=== PATIENT | male | born 1985 | race Caucasian/White ===

== ENCOUNTER 2018-08-11 05:55 | Inpatient (IN) ==
[2018-08-11] MEDS ORDERED: ONDANSETRON 4 MG/2 ML VIAL IVP ONE (06:12)
[2018-08-11] MEDS ORDERED: Sodium Chloride 0.9% 1,000 ML PRIMARY IV ONE (06:12)
[2018-08-11] MEDS ORDERED: PANTOPRAZOLE IV 40 MG VIAL IVP ONE (06:12)
[2018-08-11 06:35] LABS: BASOPHILS # (AUTO) 0.03 10*3/UL; BASOPHILS % (AUTO) 0.5 % (0-1); EOSINOPHILS # (AUTO) 0.04 10*3/UL; EOSINOPHILS % (AUTO) 0.7 % (0-8); Hemoglobin [HGB] 15.3 g/dL (14.0-18.0); LYMPHOCYTES # (AUTO) 1.66 10*3/uL; MEAN CORPUSCULAR HEMOGLOBIN 33.2 PG (27-31); MEAN CORPUSCULAR HGB CONC 34.8 g/dL (33-37); MEAN CORPUSCULAR VOLUME 95.4 FL (80-90); MEAN PLATELET VOLUME 11.1 FL (7.4-12.2); MONOCYTES # (AUTO) 0.64 10*3/UL (0.3-0.8); MONOCYTES % (AUTO) 10.4 % (5-15); NEUTROPHILS # (AUTO) 3.75 10*3/UL; NEUTROPHILS % (AUTO) 61.1 % (50-80); PLATELET MORPHOLOGY COMMENT NORMAL MORPHOLOGY (NORM); RBC MORPHOLOGY COMMENT NORMAL MORPHOLOGY (NORM); RED BLOOD COUNT 4.61 10^6/uL (4.70-6.10); WBC MORPHOLOGY COMMENT NORMAL MORPHOLOGY (NORM)
[2018-08-11 06:36] LABS: BILIRUBIN,URINE NEGATIVE (NEG); CLARITY,URINE CLEAR (CLEAR); COLOR,URINE YELLOW (Y); GLUCOSE, URINE (UA) NEGATIVE (NEG); OCCULT BLOOD,URINE NEGATIVE (NEG); PH,URINE 8.5 (5.0-8.5); PROTEIN,URINE 30 mg/dl (NEG)
[2018-08-11 06:39] LABS: RBC,URINE 0 /hpf; SQUAMOUS EPITHELIAL CELL,UR RARE; URINE SAMPLE TYPE CLEAN CATCH URINE; WBC,URINE 0
[2018-08-11 06:45] LABS: BLOOD UREA NITROGEN 16 mg/dL (7-22); BUN/CREATININE RATIO 22.85 (6-20); LIPASE 707 IU/L (23-300); SERUM ALBUMIN 4.8 g/dL (3.5-4.8)
[2018-08-11] MEDS ORDERED: HYDROmorphone 2 MG/1 ML IVP ONE (07:37)
--- NOTE | 2018-08-11 07:56 | DI ---
CT ABDOMEN SCAN WITH IV CONTRAST, 08/11/2018 6:13 AM : Clinical History: Abdominal pain. Previous Exam: None at this facility. IV Contrast: 65 mL of Ultravist 370. Oral Contrast: No oral contrast ordered. Rectal Contrast: No rectal contrast ordered. Lungs: No infiltrate or effusion. Liver: Mild hepatomegaly with severe fatty infiltration. The density of the liver is substantially lo wer than that of the gallbladder. Gallbladder: Grossly normal. No calcified gallstones visualized. Common duct is mildly dilated at 6 m m. Adrenal Glands: Normal. Spleen: Normal. Pancreas: There is inflammatory/infiltrative change surrounding the head of the pancreas and the duod enum consistent with focal pancreatitis. No pseudocyst or pancreatic calcifications identified. The p ancreatic duct is not dilated. Kidneys: Normal size, shape, position and contour. No hydronephrosis or hydroureter. No renal or uret eral calculi. Masses: None. Lymph Nodes: Normal. Ascites: No ascites. Free Air: None. Spine: Normal lower thoracic and lumbar spine. READIN. Focal pancreatitis involving the head of the pancreas with inflammatory change extending to the d uodenum. No pseudocyst or pancreatic calcification identified. The pancreatic duct is not dilated. 2. Mild hepatomegaly with severe fatty infiltration of the liver. The common bile duct is mildly dil ated at 6 mm. The gallbladder is grossly normal. CT PELVIS SCAN WITH IV CONTRAST, 08/11/2018 6:13 AM: Clinical History: See above. Previous Exam: None at this facility. Contrast: Same bolus used for CT scans of the abdomen. Masses: No masses or enhancing lesions. Ascites: None. Free Air: None. Lymph Nodes: No adenopathy. Appendix: Normal. Small Bowel: Normal small bowel, terminal ileum, and ileocecal valve. Colon: Normal. Bladder: Normal. Hernias: None. Bony Pelvis: Normal sacrum, pelvic bones, and hips. READING: Normal CT scan of the pelvis with IV contrast.
--- NOTE | 2018-08-11 08:07 | PDOC ---
Abdomen/Flank HPI - General Chief Complaint: Abdomen Pain Stated Complaint: abd pain Date Seen by Provider: 08/11/18 Time Seen by Provider: 06:05 Source: POSITIVE: Patient Exam Limitations: POSITIVE: No limitations Nurse's Notes Reviewed & Considered: Yes - History of Present Illness Initial Comments: The patient is a 32-year-old male. Patient presents to the emergency room with an approximately 21 hour history of pain over the epigastrium and right of the epigastrium. Patient states he's had similar intermittent episodes over the past 2 months, which have not been as intense as his present episode. He states he's had some vomiting. No fevers. He states he last tried to eat around 9 PM last night and this induced vomiting. No melena, hematochezia, hematemesis, dysuria or hematuria. No past history of abdominal surgery. Patient states he drinks 6-12 beers a night. He took some Advil last night for his pain. He is on no prescription medications on a regular basis. He gives his weight is around 300 pounds. Body Location Affected: REPORTS: Abdomen Timing: REPORTS: Abrupt, Constant, Getting Worse Duration: <24 hours (Approximately 21 hours) Severity: Moderate Quality: REPORTS: "Pain" Abdominal Pain Onset Location: REPORTS: RUQ, Epigastric Abdominal Pain Radiation: REPORTS: No radiation Context: REPORTS: None Modifying Factors: improves with: Vomiting Associated Symptoms: REPORTS: Nausea, Vomiting Similar Symptoms Previously: Yes Recent Care Received: REPORTS: Denies Any Prior Injuries Related to Current Complaint?: No - Patient Home Medications Home Medications: Home Medications Ibuprofen [Advil] 400 mg PO Q6H PRN 08/11/18 - Patient Allergies Allergies/Adverse Reactions: Allergies Allergy/AdvReac Type Severity Reaction Status Date / Time No Known Allergies Allergy Unverified 08/11/18 05:58 Past Medical History - heen HEENT History: Denies History Cardiovascular History: Denies History Respiratory History: Denies History Gastrointestinal History: Denies History Genitourinary History: Denies History Endocrine History: Denies History Musculoskeletal History: Denies History Neurological History: Denies History Blood Disorders: Denies History History of Sexually Transmitted Diseases: No Male Reproductive History: Denies History Cancer History: Denies History In Past Year Been Physically Harmed or Verbally Threatened: No History of MDRO: No Tobacco Use: Never Smoker In the Past 12 Months, Have Used or Abuse Any Substance: None Previous Surgical History: Yes Type / Date of Surgery: right knee Anesthesia Reactions: No Malignant Hyperthermia: No Family History of Malignant Hyperthermia: No Significant Family History: No pertinent family hx Past Medical History Reviewed: Reviewed - No Changes ROS Constitution: REPORTS: Denies Symptoms Cardiovascular: REPORTS: Denies Cardiac Symptoms Respiratory: REPORTS: Denies Resp Symptoms Neurological: REPORTS: Denies Neuro Symptoms Gastrointestinal: REPORTS: Abdominal Pain, Nausea, Vomitting Endocrine: REPORTS: Denies Symptoms Musculoskeletal: REPORTS: Denies MS Symptoms Genitourinary: REPORTS: Denies Symptoms Eyes: REPORTS: Denies Symptoms ENT: REPORTS: Denies Symptoms Skin: REPORTS: Denies Skin Symptoms Lympathic: REPORTS: Denies Lympathic Symptoms Immunologic: POSITIVE: Denies Symptoms Psychiatric: POSITIVE: Denies Psych Symptoms Abdominal/Flank Pain PE - General Appearance General Appearance: POSITIVE: Alert, Cooperative, No Acute Distress, No Evidence of Trauma - HEENT HEENT: POSITIVE: Head Inspection Nml, Eyes Inspection Nml, Ears Inspection Nml, Nose Inspection Nml, Oral/Dental Inspect. Nml, Pharynx Inspect. Nml, PERRL, EOMI - Neck Neck: POSITIVE: Normal Inspection, No Apparent Injury - Respiratory Respiratory: POSITIVE: No Respiratory Distress, Breath Sounds Normal, Chest Non- Tender - Cardiovascular Cardiovascular: POSITIVE: Regular Rate and Rhythm, Heart Sounds Normal, Equal Pulses, Strong Pulses Peripheral Pulses: Radial (R): 2+, Radial (L): 2+ - Chest Chest: POSITIVE: Non Tender - Abdomen Abdomen: Soft: (All Quadrants), Normal Bowel Sounds: (All Quadrants), Denies Tenderness: (LLQ), (RLQ), No Splenomegaly: (All Quadrants), No Hepatomegaly: (All Quadrants), No Guarding: (All Quadrants), No Rebound: (All Quadrants), No Palpable Pulse: (All Quadrants), No Palpabale Mass: (All Quadrants), No Distention: (All Quadrants), No Rigidity: (All Quadrants), Tenderness Noted: (RUQ), (LUQ) Additional Abdominal Details: Abdominal examination shows bowel sounds to be present. Patient has pain on direct palpation over the epigastrium and just right of the epigastrium and, less so left of the epigastrium. No masses, organomegaly or rebound. - Back Back: POSITIVE: Normal Inspection. NEGATIVE: CVA Tenderness (R), CVA Tenderness (L) - Skin Skin: POSITIVE: Intact, Normal For Race, Warm, Dry, No Rash - Extremities Extremity: Non-Tender: (All Extremities), Normal ROM: (All Extremities), Normal Inspection: (All Extremities) - Neurological Neurological: POSITIVE: Affect Apporpriate, Oriented X3, physical director Normal As Tested, Motor Normal, Sensation Normal - Psychological Psychiatric: POSITIVE: Affect Appropriate, Mood Appropriate Images - Complete Complete: 1 - Area described pain Abdomen Progress - Results Reviewed by me Xrays/CTs/US Reviewed by me: Yes Discussed with Radiologist: Yes Radiology Findings: CT scan abdomen and pelvis with IV contrast shows pancreatitis; no gallstones seen. Common duct mildly dilated. Lab Results Reviewed by Me: Yes CBC and BMP: 08/11/18 06:27 08/11/18 06:27 Lab Results:: Laboratory Results 08/11/18 08/11/18 08/11/18 06:27 06:27 06:27 WBC 6.13 RBC 4.61 L Hgb 15.3 Hct 44.0 MCV 95.4 H MCH 33.2 H MCHC 34.8 RDW Std Deviation 43.6 RDW Coeff of Arvind 12.9 Plt Count 203 MPV 11.1 Immature Gran % (Auto) 0.2 Neut % (Auto) 61.1 Lymph % (Auto) 27.1 [place] % (Auto) 10.4 Eos % (Auto) 0.7 Baso % (Auto) 0.5 Immature Gran # (Auto) 0.01 Neut # (Auto) 3.75 Lymph # (Auto) 1.66 [place] # (Auto) 0.64 Eos # (Auto) 0.04 Baso # (Auto) 0.03 WBC Morphology Comment Normal morphology Plt Morphology Comment Normal morphology RBC Morph Comment Normal morphology Sodium 138 Potassium 3.9 Chloride 101 Carbon Dioxide 26 Anion Gap 11 BUN 16 Creatinine 0.7 Estimated GFR > 60 BUN/Creatinine Ratio 22.85 H Glucose 98 Calculated Osmolality 286.0 Calcium 9.8 Total Bilirubin 1.1 AST 179 H ALT 233 H Alkaline Phosphatase 118 Total Protein 8.5 H Albumin 4.8 Globulin 3.7 Albumin/Globulin Ratio 1.20 L Amylase 154 H Lipase 707 H Ur Collection Type Clean catch urine Urine Color Yellow Urine Clarity Clear Urine pH 8.5 Ur Specific [place] 1.020 Urine Protein 30 A Urine Glucose (UA) Negative Urine Ketones Trace A Urine Occult Blood Negative Urine Nitrate Negative Urine Bilirubin Negative Urine Urobilinogen 1.0 Ur Leukocyte Esterase Negative Urine RBC 0 Urine WBC 0 Ur Squamous Epith Cells Rare Ur Renal Epithelial Cell None Urine Crystals None Urine Bacteria None Urine Casts None Urine Mucus None Urine Trichomonas None Urine Yeast None Ur Culture Indicated? Culture not set - Patient's Progress Pain Medication Addressed: POSITIVE: Yes (Patient given a liter of normal saline in the emergency room and was medicated with Dilaudid for pain and Zofran for nausea. Feeling some better after this medication) School/Work Release Addressed: POSITIVE: Not Applicable Re-examine Time: 08:00 Re-Examine Comment: Patient advised of the diagnosis of pancreatitis. Case discussed with hospitalist on-call, Dr. Peterson, who has admitted the patient for further evaluation and treatment. Status: POSITIVE: Unchanged, Re-Examined - Consult Consult (If Yes, Name of Consulting MD & Time Called): Yes (Dr. Peterson, hospitalist, 8 AM) Consulting MD will see pt:: [place] [facility] [place] Counseled: POSITIVE: Patient, RE: Lab Results, RE: Radiology Results, RE: DX, RE: Need for F/U Patient Care Time - Estimated PCT Patient Care Time (In Minutes): 50 Vital Signs - Recent Vital Signs Vital Signs: Vital Signs (Last 8 hours) Temp Pulse Resp BP Pulse Ox 08/11/18 06:00 97.1 F 74 19 160/95 94 - VS Reviewed Vital Signs Reviewed: Yes Discharge Clinical Impression: Pancreatitis Discharge Disposition: Admit to Inpatient Condition: Fair Patient Problem(s) Reviewed: Yes Follow Up With: NONE,NONE [Primary Care Provider] - Date Decision to Admit to Inpatient: 08/11/18 Time Decision to Admit to Inpatient: 08:00
[2018-08-11] MEDS ORDERED: ACETAMINOPHEN 325 MG TABLET PO PRN (11:31)
[2018-08-11] MEDS ORDERED: CALCIUM CARBONATE 500 MG (TUMS) CHEWABLE TABLET PO PRN (11:31)
[2018-08-11] MEDS ORDERED: ONDANSETRON 4 MG/2 ML VIAL IVP PRN (11:31)
[2018-08-11] MEDS ORDERED: LIDOCAINE W/ SODIUM BICARB 0.5 ML SYR SUBD PRN (11:31)
--- NOTE | 2018-08-11 11:36 | PDOC ---
HPI - History of Present Illness Date of Service: 08/11/18 Time of Service: 11:45 Chief Complaint: Abdominal pain of 3 days' duration with vomiting the last 2 days. History of Present Illness: This is a 32 years old male with no significant medical history who presented to the hospital with history of abdominal pain felt in the epigastric and right upper quadrant being going on for about 3 days constant severe, no radiation elsewhere. He said he he vomited twice yesterday, and this morning. he is unable to keep anything down. Because of all the symptoms he came into the ER. Evaluation revealed elevated lipase and a CT showed evidence of pancreatitis and was admitted. Currently he rates his pain maybe 5 out of 10. he never had this pain before. There was no radiation to the back. He is not taking any medication. Past Medical History Medical History: 1. No significant past medical history. Surgical History: Left knee surgery for an anterior cruciate ligament. Family History: Reviewed an Not Pertinent Past Social History: Does not smoke, no drugs. He said he drinks 6-12 beers a day. He started at age 22. He lives in [place] and he is here on a job his plan to stay for a month. He is been here for 2 days now. Tobacco Use: Former Smoker In the Past 12 Months, Have Used or Abuse Any of the Following Substance: None Alcohol Use: Heavy Medication / Allergies Home Medications: Home Medications Medication Instructions Recorded Confirmed Ibuprofen [Advil] 400 mg PO Q6H PRN 08/11/18 08/11/18 Allergies/Adverse Reactions: Allergies Allergy/AdvReac Type Severity Reaction Status Date / Time No Known Allergies Allergy Unverified 08/11/18 05:58 Review of Systems - Review of Systems All Systems: Reviewed & No Additional Complaints Except as Stated Exam - Vitals Vital Signs: Vital Signs Temperature 97.1 F Temperature Source Temporal Artery Scan Pulse Rate [Pulse Oximeter] 74 Respiratory Rate 19 Blood Pressure [Left Arm] 160/95 Pulse Ox 94 Oxygen Delivery Method Room Air Height 6 ft Weight 367 lb 6.4 oz - General General Appearance: No Acute Distress, Cooperative, Morbidly Obese - Head Head Exam: Normal Inspection - Eye Eye Exam: POSITIVE: Normal Appearance - ENT ENT Exam: POSITIVE: Normal Exam - Neck Neck Exam: Normal Inspection - Respiratory Respiratory Exam: POSITIVE: Clear to Auscultation - Bilaterally - Cardiovascular Cardiovascular Exam: POSITIVE: RRR - GI/Abdominal GI/Abdominal Exam: POSITIVE: Normal Bowel Sounds, Non Distended, Soft, No Organ omegaly Additional GI/Abdominal Exam Details: Tenderness in the epigastrium and right upper quadrant. More towards the middle. - Rectal Rectal Exam: POSITIVE: Deferred - External Exam: POSITIVE: Deferred - Extremities Extremities Exam: POSITIVE: Normal Inspection - Back Back Exam: POSITIVE: Normal Inspection - Neurological Neurological Exam: POSITIVE: Alert, Oriented x 3, CN II-XII Intact, No Facial Droop, Speech Intact / Clear, Moves All Extremities Equally - Psychiatric Psychiatric Exam: POSITIVE: Normal Affect - Integumentary Integumentary Exam: POSITIVE: Normal Color Results - Labs CBC and BMP: 08/11/18 06:27 08/11/18 06:27 - Imaging Status: Report Reviewed by Me (CT abdomen 1. Focal pancreatitis involving the head of the pancreas with inflammatory change extending to the duodenum. No pseudocyst or pancreatic calcification identified. The pancreatic duct is not dilated. 2. Mild hepatomegaly with severe fatty infiltration of the liver. The common bile duct is mildly dilated at 6 mm. The gallbladder is grossly normal.) Assessment and Plan - Patient Problems (1) Pancreatitis Current Visit: Yes Status: Acute Comment: Probably alcohol induced. Will hime Put on IV fluid, nothing but Ice chips. wrote for pain medication and antiemetics. Repeat his labs tomorrow. Will order ultrasound of his liver tomorrow. Code(s): K85.90 - Acute pancreatitis without necrosis or infection, unspecified (2) Alcoholism /alcohol abuse Current Visit: Yes Status: Acute Comment: Put him on CIWA scale. Did warn him about drinking again is that he'll try to quit. Code(s): F10.20 - Alcohol dependence, uncomplicated
[2018-08-11] MEDS: HYDROmorphone 2 MG/1 ML IVP PRN ×3 (12:42→20:13)
[2018-08-11] MEDS: Lactated Ringers 1,000 ML PRIMARY IV SCH ×2 (15:07→21:59)
[2018-08-11] MEDS ORDERED: LORazepam 1 mg tab (ETOH withdrawal) PO PRN (16:49)
[2018-08-11] MEDS ORDERED: LORazepam Inj(ETOH withdrawal) 2 MG/ML VIAL IVP PRN (16:49)
[2018-08-11] MEDS: MAGNESIUM OXIDE 400 MG TABLET PO SCH (20:57)
[2018-08-12] MEDS: HYDROmorphone 2 MG/1 ML IVP PRN ×8 (00:09→21:50)
[2018-08-12] MEDS: Lactated Ringers 1,000 ML PRIMARY IV SCH ×3 (04:26→18:43)
[2018-08-12 06:21] LABS: Hematocrit [HCT] 41.4 % (42.0-52.0); Hemoglobin [HGB] 13.9 g/dL (14.0-18.0); MEAN CORPUSCULAR HEMOGLOBIN 32.6 PG (27-31); MEAN CORPUSCULAR HGB CONC 33.6 g/dL (33-37); MEAN PLATELET VOLUME 11.2 FL (7.4-12.2); RED BLOOD COUNT 4.27 10^6/uL (4.70-6.10)
[2018-08-12 06:51] LABS: BAND NEUTROPHILS % 0 % (0-10); BASOPHILS % (MANUAL) 1 % (0-1); EOSINOPHILS % (MANUAL) 7 % (0-8); MONOCYTES % (MANUAL) 8 % (0-12); NEUTROPHILS % (MANUAL) 45 % (50-80); PLATELET MORPHOLOGY COMMENT NORMAL MORPHOLOGY (NORM); RBC MORPHOLOGY COMMENT NORMAL MORPHOLOGY (NORM); WBC MORPHOLOGY COMMENT NORMAL MORPHOLOGY (NORM)
[2018-08-12 06:54] LABS: BLOOD UREA NITROGEN 15 mg/dL (7-22); BUN/CREATININE RATIO 21.42 (6-20); LIPASE 446 IU/L (23-300); SERUM ALBUMIN 3.9 g/dL (3.5-4.8)
[2018-08-12] MEDS: PANTOPRAZOLE IV 40 MG VIAL IVP SCH (08:43)
[2018-08-12] MEDS: MAGNESIUM OXIDE 400 MG TABLET PO SCH ×2 (08:44→22:35)
--- NOTE | 2018-08-12 09:10 | DI ---
GALLBLADDER AND LIVER ULTRASOUND, 08/12/2018 7:00 AM: Clinical History: Abdominal pain. Elevated LFTs. Previous Exam: None at this facility. Technique: Right upper quadrant scanned in multiple projections with Color Doppler ultrasound. Liver Texture: Diffuse fatty infiltration. Liver Size: Hepatomegaly. 223 mm. Gallbladder: Moderately distended and very difficult to visualize the echogenic liver. No gallstones. Normal gallbladder wall thickness. Negative Pham's sign. Common Bile Duct: Mildly dilated at 6 mm. Pancreas: Poorly defined secondary to bowel gas. Right Kidney: Limited exam due to bowel gas. The kidney is grossly normal. IVC and Aorta: Not visualized due to bowel gas. READIN. Hepatomegaly with diffuse fatty infiltration. 2. Gallbladder is grossly normal. The common bile duct is dilated at 6 mm. 3. The rest of the study is compromised by bowel gas.
--- NOTE | 2018-08-12 12:11 | PDOC(PROG) ---
Date of Service: 08/12/18 Time of Service: 12:00 Interval History: Subjective Somewhat better today compared to yesterday, still have the abdominal pain though. He thinks maybe there is a 50% improvement compared to when he came in. No nausea or vomiting since he's been here. Objective : Data - Labs CBC and BMP: 08/12/18 05:55 08/12/18 05:55 Objective : Exam - General General Appearance: No Acute Distress, Cooperative, Morbidly Obese - Head Head Exam: Normal Inspection - Eye Eye Exam: Normal Appearance - ENT ENT Exam: Normal Exam - Neck Neck Exam: Normal Inspection - Respiratory Respiratory Exam: Clear to Auscultation - Bilaterally - Cardiovascular Cardiovascular Exam: RRR - GI/Abdominal GI/Abdominal Exam: Normal Bowel Sounds, Non Distended, Soft, No Organomegaly - Rectal Rectal Exam: Deferred - External Exam: Deferred - Extremities Extremities Exam: Normal Inspection - Back Back Exam: Normal Inspection - Neurological Neurological Exam: Alert, Oriented x 3, CN II-XII Intact, No Facial Droop, Moves All Extremities Equally, Motor Sensory Deficit - Psychiatric Psychiatric Exam: Normal Affect Assessment and Plan - Patient Problems (1) Pancreatitis Current Visit: Yes Status: Acute Comment: We did do an ultrasound of the liver it shows fatty liver and there is no evidence of gallstones. I think this is pancreatitis alcoholic-induced. I think we can try clear liquid today and see his progress. We'll cut back on his fluid. will Repeat his labs tomorrow. Code(s): K85.90 - Acute pancreatitis without necrosis or infection, unspecified (2) Alcoholism /alcohol abuse Current Visit: Yes Status: Acute Comment: He is on CIWA protocol so far he did not need any ativan yet. Code(s): F10.20 - Alcohol dependence, uncomplicated
[2018-08-13] MEDS: HYDROmorphone 2 MG/1 ML IVP PRN ×2 (00:51→05:05)
[2018-08-13] MEDS: Lactated Ringers 1,000 ML PRIMARY IV SCH ×2 (01:01→10:19)
[2018-08-13 05:06] LABS: BASOPHILS # (AUTO) 0.01 10*3/UL; BASOPHILS % (AUTO) 0.2 % (0-1); EOSINOPHILS # (AUTO) 0.11 10*3/UL; EOSINOPHILS % (AUTO) 2.3 % (0-8); Hematocrit [HCT] 41.4 % (42.0-52.0); Hemoglobin [HGB] 14.4 g/dL (14.0-18.0); LYMPHOCYTES # (AUTO) 1.48 10*3/uL; MEAN CORPUSCULAR HEMOGLOBIN 33.3 PG (27-31); MEAN CORPUSCULAR HGB CONC 34.8 g/dL (33-37); MEAN CORPUSCULAR VOLUME 95.6 FL (80-90); MEAN PLATELET VOLUME 11.4 FL (7.4-12.2); MONOCYTES # (AUTO) 0.58 10*3/UL (0.3-0.8); NEUTROPHILS # (AUTO) 2.65 10*3/UL; NEUTROPHILS % (AUTO) 54.7 % (50-80); RED BLOOD COUNT 4.33 10^6/uL (4.70-6.10)
[2018-08-13 05:11] LABS: PLATELET MORPHOLOGY COMMENT NORMAL MORPHOLOGY (NORM); RBC MORPHOLOGY COMMENT NORMAL MORPHOLOGY (NORM); WBC MORPHOLOGY COMMENT NORMAL MORPHOLOGY (NORM)
[2018-08-13 05:13] LABS: BLOOD UREA NITROGEN 12 mg/dL (7-22); BUN/CREATININE RATIO 17.14 (6-20); SERUM ALBUMIN 4.1 g/dL (3.5-4.8)
[2018-08-13] MEDS ORDERED: traMADol 50 MG TABLET PO PRN (08:18)
[2018-08-13 08:49] VITALS: BP 145/107; RESP 16; TEMP 97.9
[2018-08-13] MEDS ORDERED: Multivitamin Tab 1 TAB PO SCH (09:00)
[2018-08-13] MEDS: PANTOPRAZOLE IV 40 MG VIAL IVP SCH (09:40)
[2018-08-13] MEDS: MAGNESIUM OXIDE 400 MG TABLET PO SCH (09:40)
[2018-08-13] MEDS ORDERED: HYDROcodone-APAP 5 MG -325 MG TABLET PO PRN (09:46)
[2018-08-13 09:59] VITALS: O2SAT 97
--- NOTE | 2018-08-13 13:05 | DCSUMMARY ---
Hospitalization Summary Admit Date: August 11 Discharge Date: 08/13/18 Hospital Course: Discharge instruction 1. Acute alcoholic pancreatitis 2. Fatty liver 3. Elevated blood pressure need follow-up 4. Morbid obesity 5. Mildly dilated common bile duct at 6 mm, need F/U. Hospital course This is a 32 years old male with nausea for past medical history who presented to the hospital history with abdominal pain felt in the epigastric and right upper quadrant being going on for 3 days before he came into the hospital, it is constant severe, no radiation elsewhere. He vomited twice before the day of admission and the morning for admission. Because of all the symptoms he came into the ER. Evaluation revealed elevated lipase and CT showed evidence of pancreatitis and he was admitted. We put him on IV fluid, pain medication and antibiotics. Initially we put on ice chips and the next day his lipase went down from 700-400 range we put him on clear liquid and he tolerated clear liquid. the day of discharge he was feeling better we advanced his diet to low- fat diet he tolerated that. this was done despite still having an elevated lipase but since pain seems to be much improved and the did not get worse with the diet and no nausea nausea or vomiting we thought he can have an advance in the diet. I checked on him again after lunch and was still denying change in symptoms and still reporting improvement in over all pain level we thought that he could be discharged home and follow-up with his primary. He did have an US that showed fatty infiltration. There was no evidence of gallstones. There is mildly dilated common bile duct that need F/U as an outpatient. Did advise him against drinking. Did notice elevation in his blood pressure while here did tell him that this need to be watched in and followed up with his primary and see whether he has truly hypertension. He has an elevated LFT that need F/U as an outpatient. Did inform him about the US findings. Laboratory Results 08/13/18 08/13/18 08/13/18 04:40 04:40 04:40 WBC 4.84 RBC 4.33 L Hgb 14.4 Hct 41.4 L MCV 95.6 H MCH 33.3 H MCHC 34.8 RDW Std Deviation 43.5 RDW Coeff of Arvind 12.8 Plt Count 161 MPV 11.4 Immature Gran % (Auto) 0.2 Neut % (Auto) 54.7 Lymph % (Auto) 30.6 [place] % (Auto) 12.0 Eos % (Auto) 2.3 Baso % (Auto) 0.2 Immature Gran # (Auto) 0.01 Neut # (Auto) 2.65 Lymph # (Auto) 1.48 [place] # (Auto) 0.58 Eos # (Auto) 0.11 Baso # (Auto) 0.01 WBC Morphology Comment Normal morphology Plt Morphology Comment Normal morphology RBC Morph Comment Normal morphology Sodium 137 Potassium 4.1 Chloride 99 Carbon Dioxide 25 Anion Gap 13 BUN 12 Creatinine 0.7 Estimated GFR > 60 BUN/Creatinine Ratio 17.14 Glucose 82 Calculated Osmolality 282.0 Calcium 10.1 Total Bilirubin 1.1 AST 159 H ALT 198 H Alkaline Phosphatase 97 Total Protein 7.0 Albumin 4.1 Globulin 2.9 Albumin/Globulin Ratio 1.40 Lipase 434 H Discharge instruction Diet low-fat Activity as tolerated Medications Current Medication(s) Medication Instructions Recorded Confirmed Type Ibuprofen [Advil] 400 mg PO Q6H PRN 08/11/18 08/11/18 History HYDROcodone/APAP 5/325 Tab [[place] 1 tab PO Q4H PRN #8 tab 08/13/18 Rx 5/325 Tab] Pantoprazole Sodium [Protonix] 40 mg PO DAILY #14 tab 08/13/18 Rx Follow-up with PCP in 1-2 weeks Condition at discharge was stable for discharge Exam - Vitals Vital Signs: Vital Signs Temperature 97.9 F Temperature Source Oral Pulse Rate [Pulse Oximeter] 64 Pulse Rate [left pointer 77 finger] Pulse Rate 62 Respiratory Rate 16 Blood Pressure [Left Arm] 145/107 Blood Pressure 149/114 Pulse Ox [left pointer finger] 97 Pulse Ox 91 Oxygen Flow Rate [left pointer 0.5 finger] Oxygen Flow Rate 149/114 Oxygen Delivery Method [left Room Air pointer finger] Oxygen Delivery Method Room Air Height 6 ft Weight 367 lb - General General Appearance: No Acute Distress, Cooperative, Morbidly Obese - Head Head Exam: Normal Inspection - Eye Eye Exam: POSITIVE: Normal Appearance - ENT ENT Exam: POSITIVE: Normal Exam - Neck Neck Exam: Normal Inspection - Respiratory Respiratory Exam: POSITIVE: Clear to Auscultation - Bilaterally - Cardiovascular Cardiovascular Exam: POSITIVE: RRR - GI/Abdominal GI/Abdominal Exam: POSITIVE: Normal Bowel Sounds, Non Distended, Soft, No Organomegaly Additional GI/Abdominal Exam Details: There is minimal tenderness in the epigastrium and right upper quadrant much less than before. - Rectal Rectal Exam: POSITIVE: Deferred - External Exam: POSITIVE: Deferred Exam: POSITIVE: Deferred - Extremities Extremities Exam: POSITIVE: Normal Inspection - Back Back Exam: POSITIVE: Normal Inspection - Neurological Neurological Exam: POSITIVE: Alert, Oriented x 3, CN II-XII Intact, No Facial Droop, Speech Intact / Clear, Moves All Extremities Equally - Psychiatric Psychiatric Exam: POSITIVE: Normal Affect - Integumentary Integumentary Exam: POSITIVE: Normal Color Patient Problems - Patient Problem List (1) Pancreatitis Status: Acute Code(s): K85.90 - Acute pancreatitis without necrosis or infection, unspecified Category: Medical (2) Alcoholism /alcohol abuse Status: Acute Code(s): F10.20 - Alcohol dependence, uncomplicated Category: Medical
== END 2018-08-13 13:22 | disposition home or self-care (01) | DRG 440 ==
LOC: ER 05:55 → MED/SURG 10:39
PROVIDERS: ADMIT Internal Medicine; ATTEND Internal Medicine

== ENCOUNTER 2019-01-10 01:30 | Inpatient (IN) ==
[2019-01-10] MEDS ORDERED: HYDROmorphone 2 MG/1 ML IVP ONE ×2 (01:50→04:32)
[2019-01-10] MEDS ORDERED: ONDANSETRON 4 MG/2 ML VIAL IVP ONE (01:50)
[2019-01-10] MEDS ORDERED: Sodium Chloride 0.9% 1,000 ML PRIMARY IV ONE (01:50)
[2019-01-10] MEDS ORDERED: Belladon/PHENobarbital Elixir 10 ML, Lidocaine Viscous Liquid 2% 15 ML, Mag Hyd/Al Hyd/... PO ONE ×3 (01:50)
[2019-01-10 02:14] LABS: BASOPHILS # (AUTO) 0.03 10*3/UL; BASOPHILS % (AUTO) 0.4 % (0-1); EOSINOPHILS # (AUTO) 0.08 10*3/UL; EOSINOPHILS % (AUTO) 1.1 % (0-8); Hematocrit [HCT] 42.2 % (42.0-52.0); Hemoglobin [HGB] 14.4 g/dL (14.0-18.0); LYMPHOCYTES # (AUTO) 2.77 10*3/uL; MEAN CORPUSCULAR HGB CONC 34.1 g/dL (33-37); MEAN CORPUSCULAR VOLUME 97.2 FL (80-90); MEAN PLATELET VOLUME 11.2 FL (7.4-12.2); MONOCYTES % (AUTO) 9.7 % (5-15); RED BLOOD COUNT 4.34 10^6/uL (4.70-6.10)
[2019-01-10 02:24] LABS: PLATELET MORPHOLOGY COMMENT NORMAL MORPHOLOGY (NORM); RBC MORPHOLOGY COMMENT NORMAL MORPHOLOGY (NORM); WBC MORPHOLOGY COMMENT NORMAL MORPHOLOGY (NORM)
[2019-01-10 02:30] LABS: BLOOD UREA NITROGEN 17 mg/dL (7-22); BUN/CREATININE RATIO 24.28 (6-20); SERUM ALBUMIN 4.1 g/dL (3.5-4.8)
[2019-01-10 04:53] LABS: BILIRUBIN,URINE NEGATIVE (NEG); CLARITY,URINE CLEAR (CLEAR); COLOR,URINE YELLOW (Y); GLUCOSE, URINE (UA) NEGATIVE (NEG); OCCULT BLOOD,URINE NEGATIVE (NEG); PROTEIN,URINE NEGATIVE (NEG); UROBILINOGEN,URINE 0.2 EU/dL (0.2)
[2019-01-10 04:57] LABS: URINE SAMPLE TYPE CLEAN CATCH URINE
[2019-01-10] MEDS ORDERED: LIDOCAINE W/ SODIUM BICARB 0.5 ML SYR SUBD PRN (07:21)
[2019-01-10] MEDS ORDERED: ONDANSETRON 4 MG/2 ML VIAL IVP PRN (07:21)
[2019-01-10] MEDS: HYDROmorphone 2 MG/1 ML IVP PRN ×6 (07:49→23:18)
[2019-01-10] MEDS: Sodium Chloride 0.9% 1,000 ML PRIMARY IV SCH ×3 (07:49→23:18)
[2019-01-11] MEDS: HYDROmorphone 2 MG/1 ML IVP PRN ×9 (01:26→23:06)
[2019-01-11] MEDS: Sodium Chloride 0.9% 1,000 ML PRIMARY IV SCH ×3 (06:52→23:07)
[2019-01-11] MEDS ORDERED: NICOTINE 21 MG /DAY PATCH TRANSDERM SCH (19:30)
[2019-01-12] MEDS: HYDROmorphone 2 MG/1 ML IVP PRN (03:44)
[2019-01-12 06:40] VITALS: O2SAT 96
[2019-01-12 06:41] VITALS: BP 153/106; RESP 12; TEMP 98.6
[2019-01-12 07:45] LABS: BLOOD UREA NITROGEN 11 mg/dL (7-22); BUN/CREATININE RATIO 15.71 (6-20); SERUM ALBUMIN 3.8 g/dL (3.5-4.8)
[2019-01-12 08:08] LABS: BASOPHILS # (AUTO) 0.02 10*3/UL; BASOPHILS % (AUTO) 0.3 % (0-1); EOSINOPHILS # (AUTO) 0.13 10*3/UL; EOSINOPHILS % (AUTO) 1.9 % (0-8); Hematocrit [HCT] 40.1 % (42.0-52.0); Hemoglobin [HGB] 13.7 g/dL (14.0-18.0); LYMPHOCYTES # (AUTO) 1.76 10*3/uL; MEAN CORPUSCULAR HGB CONC 34.2 g/dL (33-37); MEAN CORPUSCULAR VOLUME 95.9 FL (80-90); MEAN PLATELET VOLUME 10.7 FL (7.4-12.2); MONOCYTES # (AUTO) 0.67 10*3/UL (0.3-0.8); MONOCYTES % (AUTO) 9.8 % (5-15); NEUTROPHILS % (AUTO) 61.8 % (50-80); RED BLOOD COUNT 4.18 10^6/uL (4.70-6.10)
[2019-01-12 08:09] LABS: PLATELET MORPHOLOGY COMMENT NORMAL MORPHOLOGY (NORM); RBC MORPHOLOGY COMMENT NORMAL MORPHOLOGY (NORM); WBC MORPHOLOGY COMMENT NORMAL MORPHOLOGY (NORM)
== END 2019-01-12 08:35 | disposition home or self-care (01) | DRG 440 ==
LOC: ER 01:30 → MED/SURG 06:40
PROVIDERS: ADMIT Internal Medicine; ATTEND Internal Medicine